=== PATIENT | female | born 1975 | race Caucasian/White ===

== ENCOUNTER 2023-03-23 15:42 | Emergency (ER) | payer OTHER | END 2023-03-23 17:20 | disposition home or self-care (01) | LOC: CSHERS 15:42 | DX: S46.002A Unspecified injury of muscle(s) and tendon(s) of the rotator cuff of left shoulder, initial encounter (principal); I10 Essential (primary) hypertension; X58.XXXA Exposure to other specified factors, initial encounter ==

== ENCOUNTER 2023-05-28 11:55 | Emergency (ER) | payer OTHER ==
[~2023-05-28 11:55] MED LIST: Iopamidol 370 76% 100 ML VIAL ONE
[2023-05-28] MEDS ORDERED: Morphine 4 MG/ML VIAL ONE (12:39)
[2023-05-28] MEDS ORDERED: Ondansetron PF 4 MG/2 ML Vial ONE (12:39)
[2023-05-28 13:51] LABS: Troponin I Less than 0.010 ng/mL (< 0.028)
[2023-05-28 13:52] LABS: #Eosinphils 0.1 10x3/uL (0.0-0.5); #Monocytes 0.5 10x3/uL (0.0-1.1); #Neutrophils 3.9 10x3/uL (1.5-8.4); %Basophils 0.3 % (0.0-2.0); %Eosinophils 0.9 % (0.0-6.0); %Lymphocytes 28.9 % (18.0-47.0); %Monocytes 8.3 % (0.0-10.0); %Neutrophils 61.4 % (40.0-75.0); Hematocrit 40.7 % (34.9-44.5); Hemoglobin 14.3 g/dL (12.0-15.5); Mean Corpuscular HGB CONC 35.1 g/dL (32.0-36.0); Mean Corpuscular Hemoglobin 31.9 pg (27.0-33.0); Mean Corpuscular Volume 90.8 fl (81.6-98.3); Platelet Count 221 10x3/uL (150-450); RBC Distribution Width 11.9 % (11.5-14.5); Red Blood Cell (RBC) Count 4.48 10x6/uL (3.90-5.03); White Blood Cell (WBC) Count 6.4 10x3/uL (3.5-10.5)
[2023-05-28 13:54] LABS: ALT (SGPT) 351 U/L (8-55); AST (SGOT) 144 U/L (5-34); Albumin 4.2 g/dL (3.5-5.0); Alkaline Phosphatase 62 U/L (40-110); Anion Gap 12 mmol/L (10-20); BUN (Urea Nitrogen) 37 mg/dL (7.0-18.7); Bilirubin, Total 0.4 mg/dL (0.2-1.2); Calc. Creatinine Clearance 0 mL/min (70-130); Calcium 9.4 mg/dL (7.8-10.44); Carbon Dioxide 22 mmol/L (22-29); Chloride 108 mmol/L (98-107); Estimated GFR 76; Globulin 2.6 g/dL (2.4-3.5); Glucose 102 mg/dL (70-105); Potassium 4.4 mmol/L (3.5-5.1); Protein, Total 6.8 g/dL (6.0-8.3); Sodium 138 mmol/L (136-145)
[2023-05-28] MEDS ORDERED: Lidocaine 2% Viscous 10 mL, Alum & Magn 30 mL SSW SCH (14:00)
[2023-05-28] MEDS ORDERED: Morphine 2 MG/ML VIAL ONE (14:18)
[2023-05-28] MEDS ORDERED: Famotidine/PF 20 mg/2ml Vial ONE (14:18)
[2023-05-28 16:36] LABS: Troponin I Less than 0.010 ng/mL (< 0.028)
== END 2023-05-28 18:23 ==
LOC: CSHERS 11:55
DX: R07.89 Other chest pain (principal); R94.5 Abnormal results of liver function studies; I10 Essential (primary) hypertension; Z87.891 Personal history of nicotine dependence
CPT/HCPCS: 36415; 71045; 71275; 74174; 80053; 83690; 83880; 84484; 85025; 93005; 93010; 96374; 96375; 96376; J2270; J2272; J2405; S0028